=== PATIENT | female | born 1975 | race Caucasian/White ===

== ENCOUNTER 2024-08-05 13:34 | Emergency (ER) | payer MEDICARE, MEDICAID ==
[2024-08-05] MEDS ORDERED: Sodium Chloride 0.9% 10 ML Syringe FLUSH PRN (14:13)
[2024-08-05] MEDS: HYDROmorphone 1 MG/ML Syringe IVPUSH ONE ×3 (14:49→16:30)
[2024-08-05] MEDS: Sodium Chloride 0.9% 10 ML Syringe FLUSH PRN (14:51)
[2024-08-05] MEDS: Lactated Ringers 1,000 ML IV ONE ×2 (15:06→17:17)
[2024-08-05] MEDS: diphenhydrAMINE 50 MG/ML SDV IVPUSH ONE (15:17)
[2024-08-05] MEDS: Prochlorperazine 10 MG/2 ML SDV IV ONE (15:17)
[2024-08-05 15:20] LABS: BASOPHILS PERCENT AUTO 0.1 % (0.2-1.2); EOSINOPHILS ABSOLUTE AUTO 0.1 x10^3/uL (0.0-0.5); EOSINOPHILS PERCENT AUTO 0.6 % (0.0-4.0); HEMATOCRIT 43.6 % (33.0-47.0); HEMOGLOBIN 15.2 g/dL (12.0-16.0); IMMATURE GRAN ABSOLUTE AUTO 0.02 x10^3/uL (0.00-0.07); LYMPHOCYTES ABSOLUTE AUTO 1.5 x10^3/uL (1.0-4.8); LYMPHOCYTES PERCENT AUTO 8.6 % (25.0-50.0); MEAN CORPUSCULAR HEMOGLOBIN 30.3 pg (26.0-32.0); MEAN CORPUSCULAR HGB CONC 34.9 g/dL (32.0-36.0); MONOCYTES ABSOLUTE AUTO 0.7 x10^3/uL (0.0-0.8); NEUTROPHILS ABSOLUTE AUTO 14.8 x10^3/uL (1.8-7.7); NEUTROPHILS PERCENT AUTO 86.6 % (50.0-80.0); PLATELET COUNT,PLT 255 x10^3/uL (130-400); RED BLOOD CELL COUNT 5.01 x10^6/uL (4.00-5.50)
[2024-08-05 15:40] LABS: A/G RATIO 1.44; ALANINE AMINOTRANSFERASE,ALT 17 U/L (14-59); ALBUMIN 3.9 g/dL (3.4-5.0); ALKALINE PHOSPHATASE 107 U/L (46-116); ASPARTATE AMNIOTRANSFERASE,AST 13 U/L (15-37); BILIRUBIN TOTAL 0.7 mg/dL (0.2-1.0); BLOOD UREA NITROGEN,BUN 9 mg/dL (7-18); CARBON DIOXIDE,CO2 22 mmol/L (21-32); CHLORIDE,CL 105 mmol/L (98-107); CREATININE 0.7 mg/dL (0.55-1.02); EST CRCL DRUG DOSING (CG) 82.19 mL/min; GLUCOSE RANDOM 108 mg/dL (70-99); LIPASE 24 U/L (19-71); POTASSIUM,K 3.3 mmol/L (3.5-5.1); PROTEIN TOTAL,TP 6.6 g/dL (6.4-8.2); SODIUM,NA 143 mmol/L (136-145)
[2024-08-05 15:43] LABS: ANION GAP 19.3 mmol/L (5-15); C-REACTIVE PROTEIN < 0.50 mg/dL (<=0.50); ESTIMATED GFR 107 mL/min (>=60); LACTIC ACID 1.1 mmol/L (0.4-2.0)
== END 2024-08-05 18:30 | disposition home or self-care (01) ==
LOC: VM.ED 13:34 → UNDOADMIN 17:53 → VM.MS 17:53 → UNDODISIN 18:14
DX: K56.609 Unspecified intestinal obstruction, unspecified as to partial versus complete obstruction (principal); Z88.0 Allergy status to penicillin
CPT/HCPCS: 36415; 80053; 83605; 83690; 85025; 86140; 96361; 96374; 96375; 96376; 99284; 99284-25; J0780; J1171; J7120